=== PATIENT | male | born 1960 | race Caucasian/White ===

== ENCOUNTER 2021-05-11 16:12 | Emergency (ER) | payer OTHER ==
[2021-05-11] MEDS ORDERED: Ketorolac 60 MG/2 ML SDV IM ONE (16:34)
== END 2021-05-11 19:29 | disposition home or self-care (01) ==
LOC: MW.ED 16:12
DX: S89.91XA Unspecified injury of right lower leg, initial encounter (principal); W23.1XXA Caught, crushed, jammed, or pinched between stationary objects, initial encounter; Y99.0 Civilian activity done for income or pay
CPT/HCPCS: 73562; 96372; 99283; J1885; 99282